=== PATIENT | female | born 1980 | race Caucasian/White ===

== ENCOUNTER 2017-01-05 18:42 | Emergency (ER) | payer OTHER ==
[2017-01-05 18:57] VITALS: BP 119/78
--- NOTE | 2017-01-05 19:34 | UC ---
FLU HPI - HPI Summary HPI Summary: pt presents with c/o of nasal congestion, sore throat, fever chills, cough and generalized malaise X 4 days. Pt did not get a flu vaccine this year. - History of Current Complaint Chief Complaint: UCRespiratory Stated Complaint: FEVER Time Seen by Provider: 01/05/17 18:59 Hx Obtained From: Patient Hx Last Menstrual Period: December 11 ?: No Onset/Duration: Gradual Onset, Lasting Days - 4 days. Severity Currently: Mild Severity Initially: Moderate Associated Signs & Symptoms: Positive: Fever, Myalgia, Cough, Sore Throat, Nasal Congestion, Headache - Allergy/Home Medications Allergies/Adverse Reactions: Allergies Allergy/AdvReac Type Severity Reaction Status Date / Time Penicillins Allergy Hives Verified 12/12/15 09:50 Home Medications: Home Medications Acetaminophen [Tylenol] 325 mg PO 01/05/17 [History] PMH/Surg Hx/FS Hx/Imm Hx Previously Healthy: Yes Endocrine History Of: Denies: Diabetes, Thyroid Disease Cardiovascular History Of: Denies: Cardiac Disorders, Hypertension Respiratory History Of: Denies: COPD, Asthma GI/ History Of: Denies: Ulcer - Surgical History Surgical History: None - Family History Known Family History: Positive: Other - positive [facility] for URI - Social History Lives: With Family Alcohol Use: Weekly Substance Use Type: None Smoking Status (MU): Never Smoked Tobacco Have You Smoked in the Last Year: No Review of Systems Constitutional: Fever, Chills, Fatigue Skin: Negative Eyes: Negative ENT: Sore Throat, Other - nasal congestion Respiratory: Cough Cardiovascular: Negative Gastrointestinal: Negative Genitourinary: Negative Motor: Negative Neurovascular: Negative Musculoskeletal: Myalgia Neurological: Negative Psychological: Negative All Other Systems Reviewed And Are Negative: Yes Physical Exam Triage Information Reviewed: Yes Appearance: Ill-Appearing - mild Vital Signs: Initial Vital Signs Temp 99.0 F 01/05/17 18:50 Pulse 77 01/05/17 18:50 Resp 18 01/05/17 18:50 BP 119/78 01/05/17 18:50 Pulse Ox 97 01/05/17 18:50 ENT Exam: Other ENT: Positive: Nasal congestion, Other: - PND Neck exam: Other Neck: Positive: Enlarged Nodes @ - left cervical chain Respiratory Exam: Normal Cardiovascular Exam: Normal Musculoskeletal Exam: Normal Neurological Exam: Normal Psychological Exam: Normal Skin Exam: Normal Flu Course/Dx - Differential Dx/Diagnosis Differential Diagnosis/HQI/PQRI: Bronchitis, Influenza, Upper Respiratory Infection Provider Diagnoses: Influenza A Discharge - Discharge Plan Condition: Stable Disposition: HOME Patient Education Materials: Influenza (ED) Referrals: [facility] [place] [facility]IAN REFERRAL [Outside]
== END 2017-01-05 19:55 | disposition home or self-care (01) ==
LOC: UCEAST 18:42
DX: J10.1 Influenza due to other identified influenza virus with other respiratory manifestations (principal); Z88.0 Allergy status to penicillin
CPT/HCPCS: 87502; 99211; G0463

== ENCOUNTER 2018-03-07 07:05 | Inpatient (IN) | payer OTHER ==
[2018-03-07] MEDS ORDERED: Lidocaine 1% MPF* 2 ML VIAL ONE (07:25)
[2018-03-07] MEDS ORDERED: Vancomycin 1500 MG IV - x ONCE IVPB ONE ×2 (08:00)
--- NOTE | 2018-03-07 08:05 | HP ---
General Information - General Information Maternal Age: 37 Grav: 3 Para: 2 SAB: 0 IEA: 0 Estimated Due Date: 03/06/18 Determined By: LMP Gestational Age in Weeks and Days: 40 Weeks and 1 Days Maternal Blood Type and Rh: B Positive - Results this Serology/RPR Result: Non-Reactive Rubella Result: Non-Immune HBsAg Result: Negative HIV Result: Negative GBS Culture Result: Positive Past Medical History Delivery History: Hx Uncomplicated Vaginal Delivery Delivery History Comment: X2 2011, 2013 Pertinent Past Medical History: Non-Contributory Pertinent Past Surgical History: None Pertinent Family History: See Records Family History Comment: brother with congenital heart defect - Antepartal Records Antepartal Records: Reviewed, Uncomplicated Review of Systems Constitutional: Uncomfortable CV Complaint: No Respiratory: Shortness of Breath: No Gastrointestinal: No Nausea/Vomiting, Normal Bowel Movement Genitourinary: Leaking Fluid, No Dysuria, No Bleeding Musculoskeletal: Contractions Neurological: No Headache, No Visual Changes Movement: Normal Exam Allergies/Adverse Reactions: Allergies MS Penicillins [Penicillins] Allergy (Verified 03/07/18 07:42) Hives hives in 7th grade BP 144/84 Repeat 131/83 T 98.4 P 74 O2 100 RR 16 - Measurements Height: 5 ft 9.29 in Weight: 186 lb Weight in lbs: 186 Body Mass Index (BMI): 27.2 Pre- Weight: 150 lb Weight Gained This : 36 lbs and 0 ozs - Exam Abdomen: No Upper Quadrant Pain Breast: Breast Exam Deferred CVA: No CVA Tenderness Extremities: No Edema Heart: Normal Rhythm/Heart Sounds HEENT: No Significant Findings Lungs: Clear Bilaterally Rectal: Rectal Exam Deferred Reflexes: DTR 2+, - - no clonus Thyroid: - - WNL @ entry to care - Abdominal Exam Abdomen Exam: Non-Tender Abdomen Exam Comment: EFW 7lbs - Ultrasound/Biophysical Profile Ultrasound Status: Not Done Targeted Exam Findings See L&D Outpatient Visit Provider Note for Findings: N/A Estimated Weight: 7lbs Cervical Exam: 7cm Effacement: 100% Station: -1 Presenting Part: Vertex Membrane Status: SROM Amniotic Fluid Evaluation: Gross Rupture, Meconium Bleeding/Discharge: None EFM Findings - External Monitor Findings Baseline Heart Rate: 135 External Monitor Findings: Accelerations Present, No Pattern of Variable or Late Decelerations, Variability Moderate Contractions: Regular, Moderate, 45-90 Seconds Contraction Frequency: Q 2-4 Assessment/Plan - Reason for Visit Reason for Visit: 37 yo with IUP @ 40+1 weeks gestation in active labor. SROM with meconium in fluid. No evidence metabolic acidemia - Obstetrical Risk Factors Obstetrical Risk Factors: GBS Positive Risk Factors Comment: Patient has declined antibiotic prophylaxis - Plan Plan: Active Labor - Date/Time of Admission Date of Admission: 03/07/18 Time of Admission: 07:15
[2018-03-07 08:11] LABS: ABS Basophils 0 10^3/ul (0-0.2); ABS Eosinophils 0.1 10^3/ul (0-0.6); ABS Lymphocytes 2.6 10^3/ul (1.0-4.8); ABS Monocytes 0.9 10^3/ul (0-0.8); ABS Neutrophils 9.1 10^3/ul (1.5-7.7); ABS Nucleated RBC 0 10^3/ul; Eosinophil % 0.8 % (0-6); Hematocrit 33 % (35-47); Hemoglobin 11.2 g/dl (12.0-16.0); Lymphocyte % 20.2 % (25-47); Mean Corpuscular HGB Conc 34 g/dl (31-36); Mean Corpuscular Hemoglobin 26 pg (27-31); Mean Corpuscular Volume 78 fL (80-97); Mean Platelet Volume 9.3 um3 (7.4-10.4); Nucleated Red Blood Cells % 0; Platelet Count 201 10^3/ul (150-450); Red Blood Count 4.25 10^6/ul (4.0-5.4); Red Cell Distribution Width 14 % (10.5-15); White Blood Count 12.7 10^3/ul (3.5-10.8)
[2018-03-07] MEDS ORDERED: Oxytocin in LR* 20 UNITS/1,000 ML BAG IVPB ONE (08:46)
[2018-03-07] MEDS ORDERED: Glycerin ADULT SUPP PR PRN (09:07)
[2018-03-07] MEDS ORDERED: Ibuprofen TAB* 600 MG PO PRN (09:07)
[2018-03-07] MEDS ORDERED: Dibucaine 1% 28.35 GM TUBE PR PRN (09:07)
[2018-03-07] MEDS ORDERED: Witch Hazel PAD* JAR TOPICAL PRN (09:07)
[2018-03-07] MEDS ORDERED: Oxytocin in LR* 20 UNITS/1,000 ML BAG IVPB SCH (10:00)
[2018-03-07] MEDS: Acetaminophen TAB* 325 MG PO PRN ×2 (12:24→19:23)
[2018-03-07] MEDS ORDERED: Simethicone TAB* 80 MG TAB.CHEW PO SCH (12:30)
[2018-03-07] MEDS: Docusate CAP* 100 MG PO SCH ×2 (15:24→20:58)
[2018-03-08 06:51] LABS: ABS Basophils 0 10^3/ul (0-0.2); ABS Eosinophils 0.1 10^3/ul (0-0.6); ABS Lymphocytes 2.7 10^3/ul (1.0-4.8); ABS Monocytes 0.8 10^3/ul (0-0.8); ABS Neutrophils 9.1 10^3/ul (1.5-7.7); ABS Nucleated RBC 0 10^3/ul; Eosinophil % 1.1 % (0-6); Hematocrit 31 % (35-47); Hemoglobin 10.6 g/dl (12.0-16.0); Lymphocyte % 20.8 % (25-47); Mean Corpuscular HGB Conc 34 g/dl (31-36); Mean Corpuscular Hemoglobin 26 pg (27-31); Mean Corpuscular Volume 77 fL (80-97); Mean Platelet Volume 9.2 um3 (7.4-10.4); Nucleated Red Blood Cells % 0; Platelet Count 178 10^3/ul (150-450); Red Blood Count 4.04 10^6/ul (4.0-5.4); Red Cell Distribution Width 14 % (10.5-15); White Blood Count 12.8 10^3/ul (3.5-10.8)
[2018-03-08] MEDS: Ferrous Gluconate TAB* 324 MG TAB PO SCH (09:00)
[2018-03-08] MEDS ORDERED: Measles, Mumps,Rubella VACC* 0.5 ML/VIAL SUBCUT ONE (09:00)
[2018-03-08] MEDS: Docusate CAP* 100 MG PO SCH (09:00)
[2018-03-08] MEDS: Acetaminophen TAB* 325 MG PO PRN ×2 (10:21→18:04)
[2018-03-09] MEDS: Docusate CAP* 100 MG PO SCH ×2 (00:24→10:09)
[2018-03-09] MEDS: Ferrous Gluconate TAB* 324 MG TAB PO SCH ×2 (00:24→09:03)
[2018-03-09] MEDS: Acetaminophen TAB* 325 MG PO PRN ×2 (02:08→09:56)
[2018-03-09 07:55] VITALS: BP 119/72
== END 2018-03-09 12:00 | disposition home or self-care (01) | DRG 775 ==
LOC: MCHOBOUT 07:05 → MCHOB 07:26
PROVIDERS: ADMIT Midwife; ATTEND Midwife
PROC: 0HQ9XZZ Repair Perineum Skin, External Approach (ICD-10-PCS; principal; 2018-03-09)
PROC: 10E0XZZ Delivery of Products of Conception, External Approach (ICD-10-PCS; 2018-03-09)
PROC: 4A1HX4Z Monitoring of Products of Conception, Cardiac Electrical Activity, External Approach (ICD-10-PCS; 2018-03-09)
DX: O48.0 Post-term pregnancy (principal); O69.81X0 Labor and delivery complicated by cord around neck, without compression, not applicable or unspecified; O99.824 Streptococcus B carrier state complicating childbirth; O69.82X0 Labor and delivery complicated by other cord entanglement, without compression, not applicable or unspecified; Z3A.40 40 weeks gestation of pregnancy; Z88.0 Allergy status to penicillin; Z37.0 Single live birth; Z82.49 Family history of ischemic heart disease and other diseases of the circulatory system; O77.0 Labor and delivery complicated by meconium in amniotic fluid; O70.0 First degree perineal laceration during delivery
CPT/HCPCS: 36415; 85025; 86850; 86900; 86901; A9270-GY; J3370

== ENCOUNTER 2018-04-28 13:36 | Emergency (ER) | payer OTHER ==
[2018-04-28 13:45] VITALS: BP 131/91
[2018-04-28] MEDS ORDERED: Acetaminophen TAB* 325 MG PO ONE (14:15)
--- NOTE | 2018-04-28 14:15 | UC ---
UC General HPI - HPI Summary HPI Summary: pt breast feeding 7week old , she developed R breast tenderness las pm and today has had a fever and chills, starting to feel fatigued she took tylenol early this am, fever returned when med wore off - History of Current Complaint Chief Complaint: UCGeneralIllness Stated Complaint: FEVER Time Seen by Provider: 04/28/18 13:46 Hx Obtained From: Patient Hx Last Menstrual Period: December 11 Onset/Duration: Sudden Onset - last pm Timing: Constant Onset Severity: Mild Current Severity: Moderate Pain Intensity: 6 Associated Signs & Symptoms: Positive: Fever - Allergy/Home Medications Allergies/Adverse Reactions: Allergies Allergy/AdvReac Type Severity Reaction Status Date / Time Penicillins Allergy Hives Verified 04/28/18 13:44 PMH/Surg Hx/FS Hx/Imm Hx Previously Healthy: Yes - Surgical History Surgical History: None - Family History Known Family History: Positive: None, Other - positive [facility] for URI - Social History Occupation: Unemployed Lives: With Family Alcohol Use: None Substance Use Type: None Smoking Status (MU): Never Smoked Tobacco Have You Smoked in the Last Year: No - Immunization History Most Recent Influenza Vaccination: 08/10/17 Most Recent Pneumonia Vaccination: none Review of Systems Constitutional: Fever, Chills, Fatigue Skin: Other - redness R breast Respiratory: Negative Cardiovascular: Negative Neurological: Negative Psychological: Negative All Other Systems Reviewed And Are Negative: Yes Physical Exam Triage Information Reviewed: Yes Appearance: Well-Appearing, No Pain Distress, Well-Nourished Vital Signs: Initial Vital Signs Temp 101.3 F 04/28/18 13:38 Pulse 90 04/28/18 13:38 Resp 18 04/28/18 13:38 BP 131/91 04/28/18 13:38 Pulse Ox 100 04/28/18 13:38 Vital Signs Reviewed: Yes Neck exam: Normal Respiratory Exam: Normal Cardiovascular Exam: Normal Skin Exam: Other - erythema, tenderness, and warmth Lateral R breast Course/Dx - Differential Dx - Multi-Symptom Differential Diagnoses: Other - mastitis, abscess Provider Diagnoses: Mastitis R breast Discharge - Sign-Out/Discharge Documenting (check all that apply): Discharge/Admit/Transfer - Discharge Plan Condition: Good Disposition: HOME Prescriptions: Cephalexin CAP* [Keflex 500 CAP*] 500 mg PO QID #40 cap Patient Education Materials: Mastitis (ED) Referrals: No Primary Care Phys,NOPCP [Primary Care Provider] - Additional Instructions: apply cold packs to area of pain use tylenol or ibuprofen as directed for pain take cephalexin antibiotic as directed return if no better in 2 days - Billing Disposition and Condition Condition: GOOD Disposition: Home
== END 2018-04-28 14:23 | disposition home or self-care (01) ==
LOC: UCEAST 13:36
DX: N61.0 Mastitis without abscess (principal); Z88.0 Allergy status to penicillin
CPT/HCPCS: 99212; A9270-GY; G0463